=== PATIENT | female | born 1955 | race Two or more races ===

== ENCOUNTER → 2017-12-31 | Outpatient (CLI) | payer MEDICARE, OTHER ==
[~2017-12-31] MED LIST: ANACIN; NORCO; OMEPRAZOLE PO; THYR30TA
== END | disposition home or self-care (01) ==
LOC: Rad HDHVI 12:46
PROVIDERS: ATTEND Internal Medicine Cardiovascular Disease
DX: I10 Essential (primary) hypertension (principal); M06.9 Rheumatoid arthritis, unspecified; E03.9 Hypothyroidism, unspecified; F17.210 Nicotine dependence, cigarettes, uncomplicated; Z79.899 Other long term (current) drug therapy
CPT/HCPCS: 93306

== ENCOUNTER 2018-01-06 13:21 | Emergency (ER) | payer MEDICARE, OTHER ==
[~2018-01-06] VITALS: Ht 154.9 cm; Wt 91.2 kg
[2018-01-06 13:35] VITALS: BP 122/68
[2018-01-06 14:12] LABS: Basophils # (auto) 0.1 uL; Basophils % (auto) 0.9 % (0.0-2.0); Eosinophils # (auto) 0.2 uL; Eosinophils % (auto) 2.2 % (0.0-7.0); Hematocrit 42.4 % (36.0-46.0); Hemoglobin 14.4 g/dL (12.2-16.2); Lymphocytes # (auto) 3.7 uL; Lymphocytes % (auto) 33.7 % (10.0-50.0); Mean Corpuscular Hemoglobin 29.9 pg (28.0-32.0); Mean Corpuscular Hgb Conc. 33.8 g/dL (32.0-36.0); Mean Corpuscular Volume 88.4 fL (80.0-100.0); Monocytes # (auto) 1.2 uL; Monocytes % (auto) 10.8 % (0.0-12.0); Neutrophils # (auto) 5.7 uL; Neutrophils % (auto) 52.4 % (37.0-80.0); Nucleated Red Blood Cells % 0.1 %; Platelet Count (auto) 297 10^3/uL (140-450); Red Cell Distribution Width 14.5 % (11.8-14.3); White Blood Cell 10.9 10^3/uL (4.4-10.8)
[2018-01-06 14:46] LABS: Albumin 3.9 g/dL (3.4-5.0); BUN/Creatinine Ratio 16.7; Bilirubin, Total 0.3 mg/dL (0.2-1.0); Calcium 8.7 mg/dL (8.5-10.1); Potassium 3.6 mmol/L (3.5-5.1); Total Protein 7.6 g/dL (6.4-8.2)
== END 2018-01-06 17:51 | disposition left against medical advice (07) ==
LOC: ER 13:21
DX: F41.9 Anxiety disorder, unspecified (principal); M19.90 Unspecified osteoarthritis, unspecified site; E07.9 Disorder of thyroid, unspecified; M10.9 Gout, unspecified; F17.210 Nicotine dependence, cigarettes, uncomplicated
CPT/HCPCS: 36415; 71046; 80053; 84443; 84484; 85025; 93005

== ENCOUNTER → 2018-01-11 | Outpatient (CLI) | payer MEDICARE, OTHER ==
[~2018-01-11] VITALS: Ht 154.9 cm; Wt 91.6 kg
== END | disposition home or self-care (01) ==
LOC: Rad HDHVI 09:05
PROVIDERS: ATTEND Internal Medicine Cardiovascular Disease
DX: I20.0 Unstable angina (principal); R07.89 Other chest pain; R00.2 Palpitations; I10 Essential (primary) hypertension; E03.9 Hypothyroidism, unspecified; M06.9 Rheumatoid arthritis, unspecified; Z79.899 Other long term (current) drug therapy; Z87.891 Personal history of nicotine dependence
CPT/HCPCS: 78452; 93017; 96374; A9500

== ENCOUNTER 2019-03-01 18:14 | Inpatient (IN) | payer MEDICARE, OTHER | END 2019-03-03 15:55 | disposition home or self-care (01) | LOC: ER 18:14 → TELE 18:15 → TELE-WESTW 23:34 | DX: R07.89 Other chest pain (principal); N39.0 Urinary tract infection, site not specified; I10 Essential (primary) hypertension; E87.6 Hypokalemia; E03.9 Hypothyroidism, unspecified; M19.90 Unspecified osteoarthritis, unspecified site; E66.01 Morbid (severe) obesity due to excess calories; Z68.38 Body mass index [BMI] 38.0-38.9, adult ==

== ENCOUNTER 2021-02-22 13:13 | Emergency (ER) | payer MEDICARE, OTHER ==
[~2021-02-22] VITALS: Ht 154.9 cm; Wt 85.7 kg
[~2021-02-22 13:13] MED LIST changes: +AML5T PO; -ANACIN; +HYDR-531 PO; +LEVO125T7 PO; -NORCO; -OMEPRAZOLE PO; +PANT40TA2 PO; +QUET50TA PO; -THYR30TA
[2021-02-22 13:18] VITALS: BP 144/88
== END 2021-02-22 14:15 | disposition left against medical advice (07) ==
LOC: ER 13:13
DX: M25.552 Pain in left hip (principal); Z53.21 Procedure and treatment not carried out due to patient leaving prior to being seen by health care provider

== ENCOUNTER → 2021-07-16 | Outpatient (CLI) | payer MEDICARE, OTHER | END | disposition home or self-care (01) | LOC: Rad HDHVI 09:34 | PROVIDERS: ATTEND Internal Medicine | DX: I51.7 Cardiomegaly (principal); R00.2 Palpitations; R07.89 Other chest pain | CPT/HCPCS: 93306 ==

== ENCOUNTER → 2021-07-21 | Outpatient (CLI) | payer MEDICARE, OTHER ==
[~2021-07-21] VITALS: Ht 154.9 cm; Wt 83.5 kg
== END | disposition home or self-care (01) ==
LOC: Rad HDHVI 13:07
PROVIDERS: ATTEND Internal Medicine
DX: I10 Essential (primary) hypertension (principal); R00.0 Tachycardia, unspecified; R06.01 Orthopnea; R42 Dizziness and giddiness
CPT/HCPCS: 78452; 93017; 96374; A9500

== ENCOUNTER 2022-01-13 12:51 | Emergency (ER) | payer MEDICARE, OTHER ==
[~2022-01-13] VITALS: Ht 154.9 cm; Wt 86.2 kg
[2022-01-13] MEDS ORDERED: HYDR-4798 PO (16:11)
[2022-01-13] MEDS ORDERED: HYDROcodone-ACET 10/325MG TAB PO ONE (16:15)
[2022-01-13 16:24] VITALS: BP 165/88
== END 2022-01-13 16:33 | disposition home or self-care (01) ==
LOC: ER 12:51
DX: M06.9 Rheumatoid arthritis, unspecified (principal); M79.7 Fibromyalgia; Z76.0 Encounter for issue of repeat prescription; K21.9 Gastro-esophageal reflux disease without esophagitis; E03.9 Hypothyroidism, unspecified; F17.210 Nicotine dependence, cigarettes, uncomplicated; Z90.49 Acquired absence of other specified parts of digestive tract; Z79.899 Other long term (current) drug therapy

== ENCOUNTER 2022-05-16 13:47 | Emergency (ER) | payer MEDICARE, OTHER ==
[~2022-05-16] VITALS: Ht 154.9 cm; Wt 85.0 kg
[~2022-05-16 13:47] MED LIST changes: +HYDR-4798 PO
[2022-05-16] MEDS ORDERED: AMIT25TA12 PO (15:27)
[2022-05-16] MEDS ORDERED: HYDROcodone-ACET 10/325MG TAB PO ONE (15:30)
[2022-05-16 15:45] VITALS: BP 146/88
== END 2022-05-16 16:03 | disposition home or self-care (01) ==
LOC: ER 13:47
DX: G89.4 Chronic pain syndrome (principal); M54.50 Low back pain, unspecified; K21.9 Gastro-esophageal reflux disease without esophagitis; E03.9 Hypothyroidism, unspecified; F17.210 Nicotine dependence, cigarettes, uncomplicated; Z76.0 Encounter for issue of repeat prescription; Z90.49 Acquired absence of other specified parts of digestive tract; Z79.899 Other long term (current) drug therapy